=== PATIENT | male | born 1970 | race Caucasian/White ===

== ENCOUNTER 2018-02-18 15:50 | Emergency (ER) | payer OTHER ==
[~2018-02-18] VITALS: Ht 180.3 cm; Wt 70.0 kg
[~2018-02-18 15:50] MED LIST: CIPR-255 PO
[2018-02-18 15:57] VITALS: Ht 180.3 cm; Wt 70.0 kg
[2018-02-18] MEDS ORDERED: IBUPROFEN 600 MG TAB PO STA (16:09)
--- NOTE | 2018-02-18 16:33 | DIAGNOSTIC IMAGING REPORT ---
CT HEAD WITHOUT CONTRAST (CT) CLINICAL HISTORY: Head pain status post trauma COMPARISON STUDY: No previous studies for comparison. TECHNIQUE: Axial CT of the brain is performed from the vertex to the skull base. IV contrast was not administered for this examination. A dose lowering technique was utilized adhering to the principles of ALARA. CT DOSE: 614.27 mGy.cm FINDINGS: No intra or extra-axial mass lesions are visualized. There is no CT evidence of acute cortical infarction. There is no evidence of midline shift. There is no acute hemorrhage. No calvarial fractures are visualized. There is no evidence of pathologic ventricular dilatation. There is no evidence of acute sinusitis IMPRESSION: No acute intracranial findings Electronically signed by: Rodrigo Cedeño M.D. 02/18/2018 4:32 PM Dictated Date/Time: 02/18/2018 4:31 PM
[2018-02-18 16:57] VITALS: BP 146/91; PULSE 65; TEMP 36.6; O2SAT 97
--- NOTE | 2018-02-18 21:54 | EMERGENCY ROOM VISIT NOTE ---
History First contact with patient: 16:01 Chief Complaint: HEAD INJURY (MINOR) Stated Complaint: HEAD INJURY,WORKER'S COMP History of Present Illness The patient is a 47 year old male who presents to the Emergency Room with complaints of left-sided head injury that occurred last night. The patient was lifting at work when he struck his head off a shelf. The patient has had some left-sided head pain as well as nausea since the injury. He is not having neck pain, chest pain, numbness, or paresthesias. He did not lose consciousness around the event. He has not taken anything [id number] today and rates his current discomfort a 5/10. He does not have a history of multiple concussions in the past. Review of Systems More than 10 systems were reviewed and otherwise negative with the exception of history of present illness. Past Medical/Surgical History Medical Problems: (1) Acute renal failure syndrome (2) Depression (3) Pain in testicle (4) Rib fracture (5) Sepsis Family History No pertinent family history Social History Smoking Status: Current Every Day Smoker Alcohol Use: heavy Occupation Status: employed Current/Historical Medications Scheduled Ciprofloxacin Hcl (Cipro), 500 MG PO BID Physical Exam Vital Signs Date Time Temp Pulse Resp B/P (MAP) Pulse Ox O2 Delivery O2 Flow Rate FiO2 02/18/18 16:57 36.6 65 18 146/91 97 02/18/18 16:00 18 97 02/18/18 15:57 36.6 65 18 146/91 97 Room Air Physical Exam VITALS: Vitals are noted on the nurse's note and reviewed by myself. Vital signs stable. GENERAL: Well-developed, well-nourished, white male, who is in no acute distress and resting comfortably. Patient is cooperative with the examination. GCS 15 HEAD: Small area of ecchymosis and edema appreciated over the left superior forehead. No gross laceration noted. This area is tender on palpation. No kraus sign or raccoon eyes. EARS: External ear normal. External auditory canals clear, tympanic membranes pearly botello without erythema or effusion bilaterally. EYES: Pupils equal round and reactive to light and accommodation. Conjunctivae without injection, sclerae without icterus. Extraocular movements intact. NOSE: Patent, turbinates without inflammation or discharge. MOUTH: Mucous membranes moist. Tonsils are not enlarged. Pharynx without erythema, blood, or exudate. Uvula midline. Airway patent. NECK: Supple without nuchal rigidity. No lymphadenopathy. No thyromegaly. Cervical spine is nontender. HEART: Regular rate and rhythm without murmurs gallops or rubs. LUNGS: Clear to auscultation bilaterally without wheezes, rales or rhonchi. No retractions or accessory muscle use. NEURO: Patient was alert and oriented to person place and time. CN II through XII grossly intact. No focal neurological deficits. Deep tendon reflexes 2+ throughout. Medical Decision & Procedures ER Provider Diagnostic Interpretation: [~ rep ct add3]] CT HEAD WITHOUT CONTRAST (CT) CLINICAL HISTORY: Head pain status post trauma COMPARISON STUDY: No previous studies for comparison. TECHNIQUE: Axial CT of the brain is performed from the vertex to the skull base. IV contrast was not administered for this examination. A dose lowering technique was utilized adhering to the principles of ALARA. CT DOSE: 614.27 mGy.cm FINDINGS: No intra or extra-axial mass lesions are visualized. There is no CT evidence of acute cortical infarction. There is no evidence of midline shift. There is no acute hemorrhage. No calvarial fractures are visualized. There is no evidence of pathologic ventricular dilatation. There is no evidence of acute sinusitis IMPRESSION: No acute intracranial findings Medications Administered Medications (Trade) Dose Ordered Sig/Ilsa Route Start Time Stop Time Status Last Admin Dose Admin Ibuprofen (Motrin Tab) 600 mg NOW STAT PO 02/18/18 16:09 02/18/18 16:10 DC 02/18/18 16:09 600 MG ED Course Physical exam and history were performed. Nursing notes, EMR, and Medication List were personally reviewed. Patient appears to have suffered a head injury yesterday while at work. He is describing concussion-like symptoms and does have outward signs of injury. I discussed options of care with the patient. He was given ibuprofen and Tylenol here in the department. CT scan of the head was performed and reviewed by myself and read by radiology as showing no acute fracture or intracranial bleed. Clinically the patient appears well for discharge home. He will need to follow with Workmen's Compensation for further care management. He will otherwise be treated conservatively and was invited back to the ER with any new , worsening, or concerning symptoms. The chart was completed utilizing [employer] Voice Recognition Software. Grammatical errors, random word insertions, pronoun errors, and incomplete sentences are an occasional consequence of this system due to software limitations, ambient noise, and hardware issues. Any formal questions or concerns about the content, text, or information contained within the body of this dictation should be directly addressed to the provider for clarification. . Medical Decision Differential diagnosis: Etiologies such as concussion, contusion, fracture, subdural hematoma, epidural hematoma, intraparenchymal hemorrhage, as well as other traumatic pathologies were entertained. Impression Primary Impression: Closed head injury Departure Information Dispostion Home / Self-Care Condition FAIR Referrals No Doctor, Assigned (PCP) Forms HOME CARE DOCUMENTATION FORM, IMPORTANT VISIT INFORMATION Patient Instructions My [facility], ED Concussion Additional Instructions You were seen and evaluated today on an emergency basis only. This is not a substitute for, or an effort to provide, complete comprehensive medical care. It is not possible to recognize and treat all injuries or illnesses in a single emergency department visit. For this reason it is recommended that you followup with your Workmen's Compensation provider for ongoing care and evaluation. CAT scan of your head today did not show a skull fracture, bleeding, or other emergent life threatening findings. For baseline pain relief you may alternate ibuprofen and acetaminophen every 4 hours for pain control. Take 600 mg ibuprofen (Advil) and then 4 hours later take 1000 mg acetaminophen (Tylenol). Do not take more than 3000 mg acetaminophen in a single day. You are welcome to return to the emergency department anytime with new, worsening, or concerning symptoms.
== END 2018-02-18 17:04 | disposition home or self-care (01) ==
LOC: C.EDB 15:51 → C.EDD 17:04
DX: S09.90XA Unspecified injury of head, initial encounter (principal); W22.8XXA Striking against or struck by other objects, initial encounter; Y92.89 Other specified places as the place of occurrence of the external cause; Y99.0 Civilian activity done for income or pay; F17.210 Nicotine dependence, cigarettes, uncomplicated; F32.9 Major depressive disorder, single episode, unspecified